=== PATIENT | female | born 2000 | race Caucasian/White ===

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

== ENCOUNTER 2018-04-03 11:41 | Emergency (ER) | payer MEDICAID ==
[~2018-04-03] VITALS: Ht 154.9 cm; Wt 47.4 kg
[~2018-04-03 11:41] MED LIST: DOCU-131 PO; FERR325T23 PO; IBUP-1223 PO
[2018-04-03 11:44] VITALS: BP 100/63
[2018-04-03] MEDS ORDERED: KETOROLAC 30 MG/1 ML IM ONE (12:30)
[2018-04-03 12:33] LABS: BASOPHILS # (AUTO) 0.05 x10^3/uL (0-0.3); BASOPHILS % (AUTO) 1 % (0-1); EOSINOPHILS # (AUTO) 0.16 x10^3/uL (0-0.8); EOSINOPHILS % (AUTO) 2 % (1-7); LYMPHOCYTES # (AUTO) 2.71 x10^3/uL (1-6.1); LYMPHOCYTES % (AUTO) 39 % (22-44); MD NO; MEAN CORPUSCULAR HEMOGLOBIN 28.4 pg (27.0-34.8); MEAN CORPUSCULAR HGB CONC 33.3 g/dL (32.4-35.8); MEAN CORPUSCULAR VOLUME 85.2 fL (80-100); MEAN PLATELET VOLUME 8.8 fL (7.4-10.4); MONOCYTES # (AUTO) 0.53 x10^3/uL (0-1.4); MONOCYTES % (AUTO) 8 % (2-9); NEUTROPHILS # (AUTO) 3.49 x10^3/uL (1.8-8.0); NEUTROPHILS % (AUTO) 50 % (42-75); PLATELET COUNT 269 x10^3/uL (130-400); RED BLOOD COUNT 4.59 x10^6/uL (3.82-5.3); RED CELL DISTRIBUTION WIDTH 14.9 % (9.6-15.2)
[2018-04-03 12:38] LABS: CULTURE INDICATED? YES; HCG UR SG 1.018 (1.003-1.030); MICROSCOPIC INDICATED
[2018-04-03] MEDS ORDERED: LIDOCAINE-MPF 1%, 2ML ONE (12:43)
[2018-04-03] MEDS ORDERED: AZITHROMYCIN 500 MG TABLET ONE (12:44)
[2018-04-03 12:47] LABS: ALBUMIN 3.7 g/dL (3.4-5.0); ANION GAP 6 mmol/L (5-15); CALCIUM 8.6 mg/dL (8.5-10.1); CHLORIDE 110 mmol/L (98-107)
[2018-04-03 12:50] LABS: ALANINE AMINOTRANSFERASE 22 U/L (12-78); ALKALINE PHOSPHATASE 62 U/L (45-117); BILIRUBIN,TOTAL 0.4 mg/dL (0.2-1.0); CREATININE 0.83 mg/dL (0.55-1.02); TOTAL PROTEIN 7.1 g/dL (6.4-8.2)
[2018-04-03] MEDS ORDERED: CEFTRIAXONE 250 MG IM ONE (13:00)
[2018-04-03] MEDS ORDERED: AZITHROMYCIN 500 MG TABLET PO ONE (13:00)
[2018-04-03 13:19] LABS: CLUE CELLS NONE SEEN (NONE SEEN); WET PREP WBCS FEW (FEW)
== END 2018-04-03 14:19 | disposition home or self-care (01) ==
LOC: ED 13:09
DX: G89.29 Other chronic pain (principal); R10.2 Pelvic and perineal pain; N72 Inflammatory disease of cervix uteri; F17.200 Nicotine dependence, unspecified, uncomplicated; I95.9 Hypotension, unspecified
CPT/HCPCS: 36415; 76830; 80053; 81001; 81025; 85025; 87086; 87210; 87491; 87591; 87808; 96372; 99285; J0696; J1885

== ENCOUNTER 2018-11-21 18:03 | Emergency (ER) | payer SELFPAY ==
[~2018-11-21] VITALS: Ht 154.9 cm; Wt 44.0 kg
--- NOTE | 2018-11-21 18:29 | NUR ---
BIBA. PT C/O SUDDEN ONSET OF SOB WITH EPIGASTRIC PAIN/N/DIZZINESS SINCE 17:45 TODAY. PT DENIES DYER/V/D AT THIS TIME. PT AOX4. RESPS EVEN AND UNLABORED. NEURO INTACT. NSR ON PIPE BOWL PAINT TRIMMER WITHOUT ECTOPY RATE 80'S AT THIS TIME. AWAITING EDMD ASSESSMENT AT THIS TIME. ALL MONITORS IN PLACE. CALL LIGHT WITHIN REACH.
--- NOTE | 2018-11-21 18:37 | NUR ---
PT AMB TO BR AND BACK TO ROOM WITH STEADY GAIT.
[2018-11-21 19:14] LABS: BASOPHILS # (AUTO) 0.03 x10^3/uL (0-0.3); BASOPHILS % (AUTO) 0 % (0-1); EOSINOPHILS # (AUTO) 0.06 x10^3/uL (0-0.8); EOSINOPHILS % (AUTO) 1 % (1-7); LYMPHOCYTES # (AUTO) 2.07 x10^3/uL (1-6.1); LYMPHOCYTES % (AUTO) 21 % (22-44); MD NO; MEAN CORPUSCULAR HEMOGLOBIN 29.3 pg (27.0-34.8); MEAN CORPUSCULAR HGB CONC 33.7 g/dL (32.4-35.8); MEAN CORPUSCULAR VOLUME 86.9 fL (80-100); MEAN PLATELET VOLUME 8.2 fL (7.4-10.4); MONOCYTES # (AUTO) 0.55 x10^3/uL (0-1.4); MONOCYTES % (AUTO) 6 % (2-9); NEUTROPHILS # (AUTO) 7.02 x10^3/uL (1.8-8.0); NEUTROPHILS % (AUTO) 72 % (42-75); PLATELET COUNT 313 x10^3/uL (130-400); RED BLOOD COUNT 4.71 x10^6/uL (3.82-5.3); RED CELL DISTRIBUTION WIDTH 14.1 % (9.6-15.2)
[2018-11-21 19:24] LABS: ALBUMIN 3.8 g/dL (3.4-5.0); ANION GAP 7 mmol/L (5-15); CALCIUM 9.4 mg/dL (8.5-10.1); CHLORIDE 111 mmol/L (98-107); CREATININE 0.77 mg/dL (0.55-1.02)
[2018-11-21 19:29] LABS: AMPHETAMINE SCREEN, URINE Negative (Negative); BARBITURATE SCREEN, URINE Negative (Negative); BENZODIAZEPINE SCREEN, URINE Negative (Negative); CANNABINOID SCREEN, URINE Positive (Negative); COCAINE SCREEN, URINE Negative (Negative); METHADONE SCREEN, URINE Negative (Negative); OPIATE SCREEN, URINE Negative (Negative)
[2018-11-21 20:17] VITALS: BP 104/67
--- NOTE | 2018-11-21 20:21 | NUR ---
LUNCH RN: Patient/Caregiver given discharge instructions and they have confirmed that they understand the instructions. Patient ambulatory with steady gait.
== END 2018-11-21 20:19 | disposition home or self-care (01) ==
LOC: ED 18:37
DX: R06.00 Dyspnea, unspecified (principal); I10 Essential (primary) hypertension; F17.200 Nicotine dependence, unspecified, uncomplicated
CPT/HCPCS: 36415; 71045; 80048; 80307; 81025; 82040; 85025; 85379; 93005; 99284